=== PATIENT | male | born 1965 | race Caucasian/White ===

== ENCOUNTER → 2017-09-22 | Outpatient (CLI) | payer BC ==
--- NOTE | 2017-09-22 12:49 | ECHOS ---
STRESS ECHOCARDIOGRAM DATE OF SERVICE: 09/22/2017 INDICATIONS: Chest pain. BASELINE HEART RATE: 76 BASELINE BLOOD PRESSURE: 91/51 MAXIMUM HEART RATE: 130 MAXIMUM BLOOD PRESSURE: 167/92 85% MPHR: 142 100% MPHR: 167 METS: 4.8 MAXIMUM STAGE REACHED: 2 TOTAL EXERCISE TIME: 3:15 CLINICAL INFORMATION: Baseline EKG revealed normal sinus rhythm without significant ST-T changes. Patient walked on a standard Kareem protocol for 3 minutes 15 seconds, developed fatigue and shortness of breath. He achieved a maximal heart rate of 130 beats per minute. The patient also had some underlying COPD. Stress test was therefore stopped because of shortness of breath. EKG, at a heart rate of 130 beats per minute did not reveal any changes to suggest ischemia. This is therefore and inconclusive stress test with limited exercise capacity. Inadequate chronotropic response was seen. Baseline echo images revealed normal wall motion and wall thickening of all segments. At peak exercise and it was suboptimal heart rate of 130 beats per minute. There is no evidence to suggest ischemia on this stress echocardiogram. However, this is an inconclusive study given the fact patient did not achieve 85% of predicted maximal heart rate. FINAL IMPRESSION: Limited exercise capacity.correction with an inconclusive stress echocardiogram. However, at the at the above-mentioned heart rate of 130 beats per minute, there is no evidence suggest ischemia. MMODL / IJN: [id number] /
== END | disposition home or self-care (01) ==
LOC: RADNMMAIN 08:55
PROVIDERS: ATTEND Family Medicine
DX: R07.9 Chest pain, unspecified (principal); R06.02 Shortness of breath
CPT/HCPCS: 93350; 93017; Q9950

== ENCOUNTER → 2019-02-27 | Outpatient (CLI) | payer BC ==
--- NOTE | 2019-02-28 00:37 | MR ---
EXAMINATION TYPE: MR lumbar spine wo/w con DATE OF EXAM: 02/27/2019 COMPARISON: None HISTORY: LBP, LLE radic x 3 mos, abnormal EMG TECHNIQUE: Multiplanar, multisequence images of the lumbar spine were acquired utilizing [address] gadolinium contrast. Lumbar vertebra have normal alignment. There is mild decreased signal in the disks from L2 to S1 with out significant loss of height. There is anterior and posterior disc herniation at L4-5. There is dev elopmentally adequate canal and no significant spinal stenosis. There is no lumbar paraspinal mass. T here is no compression fracture. There is slight narrowing of the neural foramina bilaterally at L4-5 and L3-4 due to disc space narrowing. Visualized sacroiliac joints appear intact. Lumbar nerve roots appear normal. There are small cortical cysts in the left kidney. The contrast images show no pathologic enhancement. IMPRESSION: Small anterior and posterior disc herniations at L4-5. No spinal stenosis.
== END | disposition home or self-care (01) ==
LOC: RADMRIMAIN 18:24
PROVIDERS: ATTEND Family Medicine
DX: M51.16 Intervertebral disc disorders with radiculopathy, lumbar region (principal); R94.131 Abnormal electromyogram [EMG]
CPT/HCPCS: 72158; A9585

== ENCOUNTER 2019-06-09 22:12 | Inpatient (IN) | payer BC ==
[2019-06-09] MEDS ORDERED: MAGNESIUM SULFATE-D5W PMX 1 GM in DEXTROSE/WATER 1 100ML.BAG IVPB STA (22:19)
[2019-06-09] MEDS ORDERED: IPRATROPIUM-ALBUTEROL 3 ML NEB INHALATION STA (22:19)
--- NOTE | 2019-06-09 22:19 | ED ---
SOB HPI - General Chief Complaint: Shortness of Breath Stated Complaint: Shortness of Breath Time Seen by Provider: 06/09/19 22:15 - History of Present Illness Initial Comments: The patient is a 54-year-old male past history of COPD who presents emergency room with reported shortness of breath. He is not on home oxygen. States that his symptoms started on Monday. He was having worsening shortness of breath and was using his DuoNeb sent home. States that it hasn't been helping his symptoms. He does admit to a productive cough with yellow sputum production. Denies hemoptysis. He has never been intubated for his breathing. He sees Dr. Palacio in office. 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 States that he has not been on steroids in a very long time. This is the first time he had to call EMS to be brought into the hospital. When EMS arrived the patient was notably tachypneic and diaphoretic. He was satting 90% on room air. They did put him on CPAP. IV was established is given 125 mg of Solu-Medrol. He was also provided with a DuoNeb breathing treatment followed by an albuterol treatment. The patient had audible wheezes. He admits to chest wall pain from coughing. Denies ripping or tearing sensation to his back. Denies a history of congestive heart failure or coronary artery disease. No history of DVT or PE. Denies sudden onset of the shortness of breath. No lower extremity edema. Denies any calf pain or swelling. There are no other alleviating, precipitating or modifying factors - Related Data Home Medications Medication Instructions Recorded Confirmed Albuterol Sulfate [Ventolin HFA] 1 - 2 puff INHALATION RT-BID PRN 06/10/19 06/10/19 Budesonide-Formot 160-4.5 Mcg 2 puff INHALATION RT-BID 06/10/19 06/10/19 [Symbicort 160-4.5 Mcg Inhaler] Ergocalciferol (Vitamin D2) 50,000 unit PO Q30D 06/10/19 06/10/19 [Drisdol] Ipratropium-Albuterol Nebulize 3 ml INHALATION RT-QID PRN 06/10/19 06/10/19 [Duoneb 0.5 mg-3 mg/3 ml Soln] Levothyroxine Sodium [Synthroid] 150 mcg PO DAILY 06/10/19 06/10/19 Pravastatin Sodium [Pravachol] 80 mg PO DAILY 06/10/19 06/10/19 rOPINIRole HCL [Requip] 4 mg PO HS 06/10/19 06/10/19 Allergies Allergy/AdvReac Type Severity Reaction Status Date / Time No Known Allergies Allergy Verified 06/10/19 08:07 Review of Systems ROS Statement: Those systems with pertinent positive or pertinent negative responses have been documented in the HPI. ROS Other: All systems not noted in ROS Statement are negative. Past Medical History - Past Family History Mother Family Medical History: Cancer, COPD Father Family Medical History: Myocardial Infarction (VT) General Exam General appearance: alert, in distress Head exam: Present: atraumatic, normocephalic, normal inspection Eye exam: Present: normal appearance, PERRL, EOMI. Absent: scleral icterus, conjunctival injection, periorbital swelling ENT exam: Present: normal exam, mucous membranes moist Neck exam: Present: normal inspection. Absent: tenderness, meningismus, lymphadenopathy Respiratory exam: Present: respiratory distress, wheezes, accessory muscle use, decreased breath sounds, other (tachypnia). Absent: rales, rhonchi, stridor Cardiovascular Exam: Present: regular rate, normal rhythm, normal heart sounds. Absent: systolic murmur, diastolic murmur, rubs, gallop, clicks GI/Abdominal exam: Present: soft, normal bowel sounds. Absent: distended, tenderness, guarding, rebound, rigid Extremities exam: Present: normal inspection, full ROM, normal capillary refill. Absent: tenderness, pedal edema, joint swelling, calf tenderness Back exam: Present: normal inspection Neurological exam: Present: alert, oriented X3, CN II-XII intact Psychiatric exam: Present: normal affect, normal mood Skin exam: Present: warm, intact, normal color, diaphoretic. Absent: rash Course Vital Signs 06/09/19 06/09/19 06/09/19 22:13 22:26 22:58 Temperature 97.6 F Pulse Rate 113 H 111 H 104 H Respiratory 32 H 26 H 18 Rate Blood Pressure 143/103 116/103 131/93 O2 Sat by Pulse 98 97 97 Oximetry 06/09/19 06/09/19 06/09/19 23:07 23:18 23:20 Temperature Pulse Rate 113 H 116 H 112 H Respiratory 16 Rate Blood Pressure 119/99 O2 Sat by Pulse 98 Oximetry 06/09/19 06/09/19 06/09/19 23:30 23:40 23:50 Temperature Pulse Rate 111 H 113 H 113 H Respiratory 19 21 25 H Rate Blood Pressure 119/99 120/95 120/95 O2 Sat by Pulse 97 97 96 Oximetry 06/10/19 06/10/19 00:00 01:21 Temperature Pulse Rate Respiratory Rate Blood Pressure 120/95 126/82 O2 Sat by Pulse 98 Oximetry Medical Decision Making - Medical Decision Making upon arrival the patient was placed into room 5. A thorough history and physical exam was performed. The patient was transitioned from CPAP to BiPAP. He is notably tachycardic. 12-lead EKG is performed. X-ray studies were conducted and a portable chest x-rays performed. I did provide the patient with 1 g of magnesium and an additional DuoNeb breathing treatment. Lab studies show a normal white blood cell count of 7.3. Platelets are 140. D-dimer 0.52 which is appropriate for the patient's age. PCO2 is 45 with a bicarb of 24. Influenza A and B are negative. Chest x-ray demonstrates no active cardio pulmonary disease. - Lab Data Result diagrams: 06/09/19 22:21 06/09/19 22:21 Lab Results 06/09/19 06/09/19 06/09/19 Range/Units 22:21 22:21 22:21 WBC 7.3 (3.8-10.6) k/uL RBC 5.92 H (4.30-5.90) m/uL Hgb 17.5 (13.0-17.5) gm/dL Hct 54.4 H (39.0-53.0) % MCV 91.8 (80.0-100.0) fL MCH 29.5 (25.0-35.0) pg MCHC 32.1 (31.0-37.0) g/dL RDW 12.7 (11.5-15.5) % Plt Count 140 L (150-450) k/uL Neutrophils % (Manual) 44 % Band Neutrophils % 3 % Lymphocytes % (Manual) 38 % Monocytes % (Manual) 15 % Neutrophils # (Manual) 3.40 (1.3-7.7) k/uL Lymphocytes # (Manual) 2.77 (1.0-4.8) k/uL Monocytes # (Manual) 1.10 H (0-1.0) k/uL Nucleated RBCs 0 (0-0) /100 WBC Manual Slide Review Performed PT (9.0-12.0) sec INR (<1.2) APTT (22.0-30.0) sec D-Dimer (<0.60) mg/L FEU VBG pH (7.31-7.41) VBG pCO2 (37-51) mmHg VBG HCO3 (24-28) mmol/L Sodium 138 (137-145) mmol/L Potassium 4.6 (3.5-5.1) mmol/L Chloride 103 (98-107) mmol/L Carbon Dioxide 26 (22-30) mmol/L Anion Gap 9 mmol/L BUN 14 (9-20) mg/dL Creatinine 0.97 (0.66-1.25) mg/dL Est GFR (CKD-EPI)AfAm >90 (>60 ml/min/1.73 sqM) Est GFR (CKD-EPI)NonAf 88 (>60 ml/min/1.73 sqM) Glucose 111 H (74-99) mg/dL Plasma Lactic Acid Reyes (0.7-2.0) mmol/L Calcium 9.3 (8.4-10.2) mg/dL Magnesium 2.2 (1.6-2.3) mg/dL Total Bilirubin 0.7 (0.2-1.3) mg/dL AST 50 (17-59) U/L ALT 32 (4-49) U/L Alkaline Phosphatase 89 (38-126) U/L Troponin I (0.000-0.034) ng/mL NT-Pro-B Natriuret Pep 88 pg/mL Total Protein 7.9 (6.3-8.2) g/dL Albumin 4.7 (3.5-5.0) g/dL Influenza Type A RNA (Not Detectd) Influenza Type B (PCR) (Not Detectd) 06/09/19 06/09/19 06/09/19 Range/Units 22:21 22:21 22:21 WBC (3.8-10.6) k/uL RBC (4.30-5.90) m/uL Hgb (13.0-17.5) gm/dL Hct (39.0-53.0) % MCV (80.0-100.0) fL MCH (25.0-35.0) pg MCHC (31.0-37.0) g/dL RDW (11.5-15.5) % Plt Count (150-450) k/uL Neutrophils % (Manual) % Band Neutrophils % % Lymphocytes % (Manual) % Monocytes % (Manual) % Neutrophils # (Manual) (1.3-7.7) k/uL Lymphocytes # (Manual) (1.0-4.8) k/uL Monocytes # (Manual) (0-1.0) k/uL Nucleated RBCs (0-0) /100 WBC Manual Slide Review PT 9.4 (9.0-12.0) sec INR 0.9 (<1.2) APTT 28.6 (22.0-30.0) sec D-Dimer (<0.60) mg/L FEU VBG pH (7.31-7.41) VBG pCO2 (37-51) mmHg VBG HCO3 (24-28) mmol/L Sodium (137-145) mmol/L Potassium (3.5-5.1) mmol/L Chloride (98-107) mmol/L Carbon Dioxide (22-30) mmol/L Anion Gap mmol/L BUN (9-20) mg/dL Creatinine (0.66-1.25) mg/dL Est GFR (CKD-EPI)AfAm (>60 ml/min/1.73 sqM) Est GFR (CKD-EPI)NonAf (>60 ml/min/1.73 sqM) Glucose (74-99) mg/dL Plasma Lactic Acid Reyes 0.9 (0.7-2.0) mmol/L Calcium (8.4-10.2) mg/dL Magnesium (1.6-2.3) mg/dL Total Bilirubin (0.2-1.3) mg/dL AST (17-59) U/L ALT (4-49) U/L Alkaline Phosphatase (38-126) U/L Troponin I <0.012 (0.000-0.034) ng/mL NT-Pro-B Natriuret Pep pg/mL Total Protein (6.3-8.2) g/dL Albumin (3.5-5.0) g/dL Influenza Type A RNA (Not Detectd) Influenza Type B (PCR) (Not Detectd) 06/09/19 06/09/19 06/09/19 Range/Units 22:21 22:21 22:21 WBC (3.8-10.6) k/uL RBC (4.30-5.90) m/uL Hgb (13.0-17.5) gm/dL Hct (39.0-53.0) % MCV (80.0-100.0) fL MCH (25.0-35.0) pg MCHC (31.0-37.0) g/dL RDW (11.5-15.5) % Plt Count (150-450) k/uL Neutrophils % (Manual) % Band Neutrophils % % Lymphocytes % (Manual) % Monocytes % (Manual) % Neutrophils # (Manual) (1.3-7.7) k/uL Lymphocytes # (Manual) (1.0-4.8) k/uL Monocytes # (Manual) (0-1.0) k/uL Nucleated RBCs (0-0) /100 WBC Manual Slide Review PT (9.0-12.0) sec INR (<1.2) APTT (22.0-30.0) sec D-Dimer 0.52 (<0.60) mg/L FEU VBG pH 7.35 (7.31-7.41) VBG pCO2 45 (37-51) mmHg VBG HCO3 24 (24-28) mmol/L Sodium (137-145) mmol/L Potassium (3.5-5.1) mmol/L Chloride (98-107) mmol/L Carbon Dioxide (22-30) mmol/L Anion Gap mmol/L BUN (9-20) mg/dL Creatinine (0.66-1.25) mg/dL Est GFR (CKD-EPI)AfAm (>60 ml/min/1.73 sqM) Est GFR (CKD-EPI)NonAf (>60 ml/min/1.73 sqM) Glucose (74-99) mg/dL Plasma Lactic Acid Reyes (0.7-2.0) mmol/L Calcium (8.4-10.2) mg/dL Magnesium (1.6-2.3) mg/dL Total Bilirubin (0.2-1.3) mg/dL AST (17-59) U/L ALT (4-49) U/L Alkaline Phosphatase (38-126) U/L Troponin I (0.000-0.034) ng/mL NT-Pro-B Natriuret Pep pg/mL Total Protein (6.3-8.2) g/dL Albumin (3.5-5.0) g/dL Influenza Type A RNA Not Detected (Not Detectd) Influenza Type B (PCR) Not Detected (Not Detectd) - EKG Data EKG Comments: EKG demonstrates a sinus tachycardia with a ventricular rate of 117. MS interval 132. QRS 80. QTC of 446. No acute ST segment elevations or depressions concerning for ischemic changes. There is significant baseline artifact. Inverted T-wave in aVL. Critical Care Time Critical Care Time: Yes Critical Care Time: 35 minutes for management of bipap settings Disposition Clinical Impression: COPD with acute exacerbation Disposition: ADMITTED IP TO THIS HOSP Condition: Serious Is patient prescribed a controlled substance at d/c from ED?: No Decision to Admit Reason: Admit from EC Decision Date: 06/10/19 Decision Time: 00:26
[2019-06-09] MEDS ORDERED: KETOROLAC 30 MG/ML 1 ML VIAL IVP STA (22:24)
--- NOTE | 2019-06-09 22:37 | XR ---
EXAMINATION TYPE: XR chest 1V portable DATE OF EXAM: 06/09/2019 COMPARISON: NONE HISTORY: Short of breath TECHNIQUE: Single view FINDINGS: Heart is normal. Lungs are clear of consolidation. There is no pleural effusion. There are no hilar masses. There are chest leads. IMPRESSION: No active cardiopulmonary disease. Normal heart.
[2019-06-09 22:41] LABS: VBG PH 7.35 (7.31-7.41)
[2019-06-09 22:45] LABS: HCT 54.4 % (39.0-53.0); HGB 17.5 gm/dL (13.0-17.5); MCH 29.5 pg (25.0-35.0); MCHC 32.1 g/dL (31.0-37.0); MCV 91.8 fL (80.0-100.0); Mean Platelet Volume 8.6; Platelet Count 140 k/uL (150-450); RBC 5.92 m/uL (4.30-5.90); RDW 12.7 % (11.5-15.5); WBC 7.3 k/uL (3.8-10.6)
[2019-06-09 22:49] LABS: INR 0.9 (<1.2); Partial Thromboplastin Time 28.6 sec (22.0-30.0); Prothrombin Time 9.4 sec (9.0-12.0)
[2019-06-09 22:54] LABS: ALT 32 U/L (4-49); AST 50 U/L (17-59); African American GFR (CKD) >90 (>60 ml/min/1.73 sqM); Albumin 4.7 g/dL (3.5-5.0); Alkaline Phosphatase 89 U/L (38-126); Anion Gap 9 mmol/L; Blood Urea Nitrogen 14 mg/dL (9-20); Calcium 9.3 mg/dL (8.4-10.2); Carbon Dioxide 26 mmol/L (22-30); Chloride 103 mmol/L (98-107); Glucose 111 mg/dL (74-99); Magnesium 2.2 mg/dL (1.6-2.3); Non-African American GFR(CKD) 88 (>60 ml/min/1.73 sqM); Potassium 4.6 mmol/L (3.5-5.1); Sodium 138 mmol/L (137-145); Total Bilirubin 0.7 mg/dL (0.2-1.3); Total Protein 7.9 g/dL (6.3-8.2)
[2019-06-09 23:01] LABS: Band Neutrophils % 3 %; Lymphocytes # (M) 2.77 k/uL (1.0-4.8); Neutrophils % (M) 44 %; Nucleated Red Blood Cells 0 /100 WBC (0-0); Total Cells Counted 100
--- NOTE | 2019-06-10 00:40 | CT ---
EXAMINATION TYPE: CT chest angio for PE DATE OF EXAM: 06/10/2019 COMPARISON: None there are 3-D post processed images. HISTORY: SOB. CT DLP: 392.1 mGycm Automated exposure control for dose reduction was used. CONTRAST: Performed with IV Contrast, patient injected with 60 mL of Isovue 370. There is pulmonary emphysema. There is minimal pleural thickening in the anterior right middle lobe. There is no evidence of a pulmonary mass. There is no pleural effusion. Upper abdominal soft tissues are intact. Heart size is normal. There is no pericardial effusion. There is normal contrast opacification of the pulmonary arteries. There are no filling defects. There is no mediastinal adenopathy. There are no h ilar masses. Thoracic aorta shows no aneurysm or dissection. Thoracic spine is intact. Bony thorax is intact. IMPRESSION: Emphysema. No evidence of pulmonary embolism. Minimal pleural scarring right middle lobe.
[2019-06-10] MEDS ORDERED: NALOXONE 0.4 MG/ML 1 ML VIAL IV PRN (00:41)
[2019-06-10] MEDS ORDERED: AZITHROMYCIN 500 MG in SODIUM CHLORIDE 0.9% 250 ML IVPB ONE (01:00)
[2019-06-10] MEDS: methylPREDNISolone SOD SUCCI 40 MG/ML 1 ML VIAL IV SCH ×2 (01:18→07:52)
[2019-06-10] MEDS: IPRATROPIUM-ALBUTEROL 3 ML NEB INHALATION SCH ×5 (03:18→19:57)
[2019-06-10 10:25] LABS: Cholesterol 181 mg/dL (<200); HDL Cholesterol 58 mg/dL (40-60); LDL Cholesterol,Calculated 113 mg/dL (0-99); Triglycerides 51 mg/dL (<150)
[2019-06-10] MEDS: PRAVASTATIN SODIUM 80 MG TAB PO SCH (11:26)
[2019-06-10] MEDS: NAPROXEN 250 MG TAB PO PRN (11:50)
--- NOTE | 2019-06-10 13:22 | P.CRDCN ---
History of Present Illness History of present illness: HISTORY OF PRESENTING ILLNESS This is a pleasant 54-year-old male past medical history significant for COPD, dyslipidemia and former nicotine dependence. 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 He underwent at stress echo in 2018 that was inconclusive secondary to poor exercise tolerance. He has significant family history for premature coronary artery disease in his father and mother. We have been asked to see in consultation for shortness of breath. He states acutely on Monday he started coughing with productive phlegm production. Sputum was yellowish brown. He also had significant shortness of breath. On EMS arrival he was quite tachypneic and bipap was applied. He responded quite well. He is seen and examined sitting up in bed in no acute distress. He states his shortness of breath is ongoing however has improved significantly. He is still coughing and having some pleuritic pain on the left side when he coughs. He denies dizziness, palpitations, nausea or vomiting. He sleeps sitting up in his recliner for the last 6-months secondary to coughing when he lays flat. DIAGNOSTICS EKG reveals sinus tachycardia heart rate 117. No acute ST changes. Chest xray negative for an acute cardiopulmonary process. CTA chest negative for PE with minimal scarring in the right middle lobe. Laboratory reviewed, WBC 7.3, hgb 17.5, plt 140, d-dimer 0.52, VBG unremarkable, sodium 138, potassium 4.6, creatinine 0.97, cardiac enzymes negative x2, proBNP 88, LDL 113, HDL 58. Current cardiac medications include pravastatin 80 mg daily. REVIEW OF SYSTEMS At the time of my exam: CONSTITUTIONAL: Denies fever or chills. CARDIOVASCULAR: Complains of shortness of breath and pleuritic chest pain. Denies orthopnea, PND or palpitations. RESPIRATORY: Complains of cough. GASTROINTESTINAL: Denies abdominal pain, diarrhea, constipation, nausea or vo miting. MUSCULOSKELETAL: Denies myalgias. NEUROLOGIC: Denies numbness, tingling or weakness. ENDOCRINE: Denies fatigue, weight change, polydipsia or polyurina. GENITOURINARY: Denies burning, hematuria or urgency with micturation. HEMATOLOGIC: Denies history of anemia or bleeding. PHYSICAL EXAMINATION Blood pressure 122/7 heart rate 93 afebrile and maintaining oxygen saturation on nasal cannula. CONSTITUTIONAL: No apparent distress. HEENT: Head is normocephalic. Pupils are equal, round. Sclerae anicteric. Mucous membranes of the mouth are moist. No JVD. No carotid bruit. CHEST EXAMINATION: Expiratory wheeze and scattered rhonchi. No chest wall tenderness is noted on palpation or with deep breathing. HEART EXAMINATION: Regular rate and rhythm. S1, S2 heard. No murmurs, gallops or rub. ABDOMEN: Soft, nontender. Positive bowel sounds. EXTREMITIES: 2+ peripheral pulses, no lower extremity edema and no calf tenderness. NEUROLOGIC EXAMINATION: Patient is awake, alert and oriented x3. ASSESSMENT Chest pain, pleuritic. Atypical for angina. No EKG changes initially on admission. Shortness of breath, likely secondary to underlying COPD. Clinically euvolemic Thrombocytopenia Dyslipidemia Former nicotine dependence PLAN Continue to obtain serial enzymes to rule out an acute event. Obtain 2D echocardiogram and doppler study to assess cardiac structure and function. Recommend outpatient stress testing when this acute exacerbation of COPD has improved. Thank you kindly for this consultation. Nurse Practitioner note has been reviewed, I agree with a documented findings and plan of care. Patient was seen and examined. Past Medical History Past Medical History: COPD, Hyperlipidemia History of Any Multi-Drug Resistant Organisms: None Reported Past Surgical History: No Surgical Hx Reported Past Anesthesia/Blood Transfusion Reactions: No Reported Reaction Past Psychological History: No Psychological Hx Reported Smoking Status: Former smoker Past Alcohol Use History: Occasional Past Drug Use History: Marijuana - Past Family History Mother Family Medical History: Cancer, COPD Father Family Medical History: Myocardial Infarction (CT) Medications and Allergies Home Medications Medication Instructions Recorded Confirmed Type Albuterol Sulfate [Ventolin HFA] 1 - 2 puff INHALATION RT-BID PRN 06/10/19 06/10/19 History Budesonide-Formot 160-4.5 Mcg 2 puff INHALATION RT-BID 06/10/19 06/10/19 History [Symbicort 160-4.5 Mcg Inhaler] Ergocalciferol (Vitamin D2) 50,000 unit PO Q30D 06/10/19 06/10/19 History [Drisdol] Ipratropium-Albuterol Nebulize 3 ml INHALATION RT-QID PRN 06/10/19 06/10/19 History [Duoneb 0.5 mg-3 mg/3 ml Soln] Levothyroxine Sodium [Synthroid] 150 mcg PO DAILY 06/10/19 06/10/19 History Pravastatin Sodium [Pravachol] 80 mg PO DAILY 06/10/19 06/10/19 History rOPINIRole HCL [Requip] 4 mg PO HS 06/10/19 06/10/19 History Allergies Allergy/AdvReac Type Severity Reaction Status Date / Time No Known Allergies Allergy Verified 06/10/19 08:07 Physical Exam Vitals: Vital Signs Temp Pulse Pulse Resp BP BP Pulse Ox 06/10/19 07:34 96 06/10/19 07:26 94 95 06/10/19 07:17 18 95 06/10/19 06:23 96.8 F L 93 22 122/79 99 06/10/19 03:32 96 06/10/19 03:20 93 06/10/19 02:44 105 H 24 06/10/19 02:09 97.3 F L 105 H 24 129/85 98 06/10/19 01:21 126/82 98 06/10/19 00:00 120/95 06/09/19 23:50 113 H 25 H 120/95 96 06/09/19 23:40 113 H 21 120/95 97 06/09/19 23:30 111 H 19 119/99 97 06/09/19 23:20 112 H 16 119/99 98 06/09/19 23:18 116 H 06/09/19 23:07 113 H 06/09/19 22:58 104 H 18 131/93 97 06/09/19 22:26 111 H 26 H 116/103 97 06/09/19 22:13 97.6 F 113 H 32 H 143/103 98 Intake and Output 06/09/19 06/10/19 06/10/19 22:59 06:59 14:59 Other: Voiding Method Toilet Toilet # Voids 1 Weight 74.843 kg 74.843 kg Results 06/09/19 22:21 06/09/19 22:21 Cardiac Enzymes 06/09/19 06/09/19 06/10/19 Range/Units 22:21 22:21 05:55 AST 50 (17-59) U/L Troponin I <0.012 <0.012 (0.000-0.034) ng/mL Coagulation 06/09/19 Range/Units 22:21 PT 9.4 (9.0-12.0) sec APTT 28.6 (22.0-30.0) sec Lipids 06/10/19 Range/Units 05:55 Triglycerides 51 (<150) mg/dL Cholesterol 181 (<200) mg/dL HDL Cholesterol 58 (40-60) mg/dL CBC 06/09/19 Range/Units 22:21 WBC 7.3 (3.8-10.6) k/uL RBC 5.92 H (4.30-5.90) m/uL Hgb 17.5 (13.0-17.5) gm/dL Hct 54.4 H (39.0-53.0) % Plt Count 140 L (150-450) k/uL Comprehensive Metabolic Panel 06/09/19 Range/Units 22:21 Sodium 138 (137-145) mmol/L Potassium 4.6 (3.5-5.1) mmol/L Chloride 103 (98-107) mmol/L Carbon Dioxide 26 (22-30) mmol/L BUN 14 (9-20) mg/dL Creatinine 0.97 (0.66-1.25) mg/dL Glucose 111 H (74-99) mg/dL Calcium 9.3 (8.4-10.2) mg/dL AST 50 (17-59) U/L ALT 32 (4-49) U/L Alkaline Phosphatase 89 (38-126) U/L Total Protein 7.9 (6.3-8.2) g/dL Albumin 4.7 (3.5-5.0) g/dL Current Medications Generic Name Dose Route Start Last Admin Trade Name Freq PRN Reason Stop Dose Admin Albuterol/Ipratropium 3 ml 06/10/19 04:00 06/10/19 07:23 Duoneb 0.5 Mg-3 Mg/3 Ml Soln INHALATION 3 ml RT-Q4H DUNG Administration Levothyroxine Sodium 150 mcg 06/11/19 06:30 Synthroid PO 0630 [facility] Methylprednisolone Sodium Succinate 40 mg 06/10/19 00:30 06/10/19 07:52 Solu-Medrol IV 40 mg Q8HR DUNG Administration Naloxone HCl 0.2 mg 06/10/19 00:41 Narcan IV Q2M PRN Opioid Reversal Pravastatin Sodium 80 mg 12/16/19 10:15 Pravachol PO DAILY DUNG Ropinirole HCl 4 mg 06/10/19 21:00 Requip PO HS DUNG Intake and Output 06/09/19 06/10/19 06/10/19 22:59 06:59 14:59 Other: Voiding Method Toilet Toilet # Voids 1 Weight 74.843 kg 74.843 kg 06/09/19 22:21 06/09/19 22:21
--- NOTE | 2019-06-10 15:19 | P.CNPUL ---
History of Present Illness Consult date: 06/10/19 Reason for consult: dyspnea Chief complaint: shortness of breath History of present illness: 54-year-old patient with past medical history of COPD, not normally oxygen dependent who presented to the hospital on 06/09/2019 with complaints of increasing shortness of breath since Monday, had not improved despite his nebul ized treatments, he admitted to productive cough with yellow sputum, and sharp pain on the left side of his chest with deep breathing and coughing. Denied any hemoptysis, denied any fever or chills, denied any hemoptysis. chest x-ray completed in the emergency department showed no active cardiopulmonary disease,labs were negative for any leukocytosis, white blood cell count was 7.3, hemoglobin was 17.5, d-dimer was 0.52, the rest of the coagulation profile, electrolytes, renal profile were within normal limits. Patient is normally on Symbicort, DuoNeb, and albuterol. EKG showed sinus tachycardia, with right atrial enlargement, but no acute ischemic changes. other past medical history includes dyslipidemia, former nicotine dependence. patient with a BiPAP support with significant amount of respiratory distress on presentation, with pressures of 14/5, and FiO2 of 35%, IV steroids, IV steroids, and empiric antibiotics, feeling slightly better, and patient is off BiPAP support, and nasal cannula Review of Systems All systems: negative Constitutional: Denies chills, Denies fever Eyes: denies blurred vision, denies pain Ears, nose, mouth and throat: Denies headache, Denies sore throat Cardiovascular: Reports chest pain, Denies shortness of breath Respiratory: Reports dyspnea, Denies cough Gastrointestinal: Denies abdominal pain, Denies diarrhea, Denies nausea, Denies vomiting Musculoskeletal: Denies myalgias Integumentary: Denies pruritus, Denies rash Neurological: Denies numbness, Denies weakness Psychiatric: Denies anxiety, Denies depression Endocrine: Denies fatigue, Denies weight change Past Medical History Past Medical History: COPD, Hyperlipidemia History of Any Multi-Drug Resistant Organisms: None Reported Past Surgical History: No Surgical Hx Reported Past Anesthesia/Blood Transfusion Reactions: No Reported Reaction Past Psychological History: No Psychological Hx Reported Smoking Status: Former smoker Past Alcohol Use History: Occasional Past Drug Use History: Marijuana - Past Family History Mother Family Medical History: Cancer, COPD Father Family Medical History: Myocardial Infarction (OK) Medications and Allergies Home Medications Medication Instructions Recorded Confirmed Type Albuterol Sulfate [Ventolin HFA] 1 - 2 puff INHALATION RT-BID PRN 06/10/19 06/10/19 History Budesonide-Formot 160-4.5 Mcg 2 puff INHALATION RT-BID 06/10/19 06/10/19 History [Symbicort 160-4.5 Mcg Inhaler] Ergocalciferol (Vitamin D2) 50,000 unit PO Q30D 06/10/19 06/10/19 History [Drisdol] Ipratropium-Albuterol Nebulize 3 ml INHALATION RT-QID PRN 06/10/19 06/10/19 History [Duoneb 0.5 mg-3 mg/3 ml Soln] Levothyroxine Sodium [Synthroid] 150 mcg PO DAILY 06/10/19 06/10/19 History Pravastatin Sodium [Pravachol] 80 mg PO DAILY 06/10/19 06/10/19 History rOPINIRole HCL [Requip] 4 mg PO HS 06/10/19 06/10/19 History Allergies Allergy/AdvReac Type Severity Reaction Status Date / Time No Known Allergies Allergy Verified 06/10/19 08:07 Physical Exam Vitals: Vital Signs Temp Pulse Pulse Resp BP BP Pulse Ox 06/10/19 14:10 97.6 F 106 H 18 111/72 97 06/10/19 11:33 104 H 06/10/19 11:22 100 06/10/19 07:34 96 06/10/19 07:26 94 95 06/10/19 07:17 18 95 06/10/19 06:23 96.8 F L 93 22 122/79 99 06/10/19 03:32 96 06/10/19 03:20 93 06/10/19 02:44 105 H 24 06/10/19 02:09 97.3 F L 105 H 24 129/85 98 06/10/19 01:21 126/82 98 06/10/19 00:00 120/95 06/09/19 23:50 113 H 25 H 120/95 96 06/09/19 23:40 113 H 21 120/95 97 06/09/19 23:30 111 H 19 119/99 97 06/09/19 23:20 112 H 16 119/99 98 06/09/19 23:18 116 H 06/09/19 23:07 113 H 06/09/19 22:58 104 H 18 131/93 97 06/09/19 22:26 111 H 26 H 116/103 97 06/09/19 22:13 97.6 F 113 H 32 H 143/103 98 Intake and Output 06/10/19 06/10/19 06/10/19 06:59 14:59 22:59 Intake Total 940 Balance 940 Intake: Oral 940 Other: Voiding Method Toilet Toilet # Voids 1 2 Weight 74.843 kg GENERAL EXAM: Alert, very pleasant, 54-year-old white male, on 4 L of oxygen with pulse ox of 97%, comfortable in no apparent distress. HEAD: Normocephalic/atraumatic. EYES: Normal reaction of pupils, equal size. Conjunctiva pink, sclera white. NOSE: Clear with pink turbinates. THROAT: No erythema or exudates. NECK: No masses, no JVD, no thyroid enlargement, no adenopathy. CHEST: No chest wall deformity. Symmetrical expansion. LUNGS: Equal air entry with diffuse wheezes CVS: Regular rate and rhythm, normal S1 and S2, no gallops, no murmurs, no rubs ABDOMEN: Soft, nontender. No hepatosplenomegaly, normal bowel sounds, no guarding or rigidity. EXTREMITIES: No clubbing, no edema, no cyanosis, 2+ pulses and upper and lower extremities. MUSCULOSKELETAL: Muscle strength and tone normal. SPINE: No scoliosis or deformity SKIN: No rashes CENTRAL NERVOUS SYSTEM: Alert and oriented -3. No focal deficits, tone is normal in all 4 extremities. PSYCHIATRIC: Alert and oriented -3. Appropriate affect. Intact judgment and insight. Results - Laboratory Findings CBC and BMP: 06/09/19 22:21 06/09/19 22:21 PT/INR, D-dimer PT 9.4 sec (9.0-12.0) 06/09/19 22:21 INR 0.9 (<1.2) 06/09/19 22:21 D-Dimer 0.52 mg/L FEU (<0.60) 06/09/19 22:21 Abnormal lab findings: Abnormal Labs 06/09/19 06/09/19 06/10/19 22:21 22:21 05:55 RBC 5.92 H Hct 54.4 H Plt Count 140 L Monocytes # (Manual) 1.10 H Glucose 111 H LDL Cholesterol, Calc 113 H - Diagnostic Findings Chest x-ray: report reviewed, image reviewed CT scan - chest: report reviewed, image reviewed Additional studies: EKG reviewed Assessment and Plan Plan: assessment: #1. Acute hypoxic respiratory failure related to acute exacerbation of chronic obstructive pulmonary disease, with purulent tracheobronchitis #2. Sharp chest pain with coughing, and workup is negative thus far, CTA chest was positive for pulmonary embolism, showed emphysema minimal pleural scarring in the right middle lobe #3. former smoker #4. his lipidemia #5. history of family no premature coronary artery disease plan: We'll start Pulmicort, Perforomist, we will increase IV Solumedrol to 60 every 6, continue Zithromax, send a sputum for culture, continue nebulized bronchodilators, chest x-ray and CTA chest have been reviewed, showing no acute pulmonary process, patient can wear BiPAP support as needed, he is improving, st ill bronchospastic and dyspnea, I performed a history & physical examination of the patient and discussed their management with my nurse practitioner, Chelsey Baird. I reviewed the nurse practitioner's note and agree with the documented findings and plan of care. Lung sounds are positive for diffuse wheezes throughout the lung blackman. The findings and the impression was discussed with the patient. I attest to the documentation by the nurse practitioner. Time with Patient: Greater than 30
[2019-06-10] MEDS: AZITHROMYCIN 500 MG TAB PO SCH (15:35)
[2019-06-10] MEDS ORDERED: methylPREDNISolone SOD SUCCI 40 MG/ML 1 ML VIAL IV SCH (16:00)
[2019-06-10] MEDS: methylPREDNISolone SOD SUCCI 125 MG/2 ML VIAL IV SCH (17:09)
--- NOTE | 2019-06-10 19:08 | ECHOF ---
Referral Reason:sob MEASUREMENTS -------- HEIGHT: 180.3 cm WEIGHT: 74.8 kg BP: 122/79 RVIDd: 3.4 cm (< 3.3) IVSd: 1.2 cm (0.6 - 1.1) LVIDd: 3.7 cm (3.9 - 5.3) LVPWd: 1.2 cm (0.6 - 1.1) IVSs: 1.9 cm LVIDs: 2.8 cm LVPWs: 1.5 cm LA Diam: 3.5 cm (2.7 - 3.8) Ao Diam: 3.2 cm (2.0 - 3.7) AV Cusp: 1.5 cm (1.5 - 2.6) MV EXCURSION: 12.495 mm (> 18.000) MV EF SLOPE: 41 mm/s (70 - 150) EPSS: 1.0 cm MV E Tyree: 0.66 m/s MV DecT: 99 ms MV A Tyree: 0.72 m/s MV E/A Ratio: 0.91 RAP: 5.00 mmHg RVSP: 32.66 mmHg FINDINGS -------- Resting tachycardia (HR>100bpm). This was a technically adequate study. The left ventricular size is normal. There is borderline concentric left ventricular hypertrophy. Overall left ventricular systolic function is normal with, an EF between 60 - 65 %. The right ventricle is mildly enlarged. The left atrial size is normal. The right atrium is normal in size. Interatrial and interventricular septum intact. Aortic valve is trileaflet and is mildly thickened. The mitral valve is normal. Mild tricuspid regurgitation present. There is borderline pulmonary hypertension. The right ventr icular systolic pressure, as measured by Doppler, is 32.66mmHg. The pulmonic valve was not well visualized. The aortic root size is normal. Normal inferior vena cava with normal inspiratory collapse consistent with estimated right atrial pre ssure of 5 mmHg. The inferior vena cava is mildly dilated. There is no pericardial effusion. CONCLUSIONS -------- 1. Resting tachycardia (HR>100bpm). 2. This was a technically adequate study. 3. The left ventricular size is normal. 4. There is borderline concentric left ventricular hypertrophy. 5. Overall left ventricular systolic function is normal with, an EF between 60 - 65 %. 6. The right ventricle is mildly enlarged. 7. The left atrial size is normal. 8. The right atrium is normal in size. 9. Interatrial and interventricular septum intact. 10. Aortic valve is trileaflet and is mildly thickened. 11. The mitral valve is normal. 12. Mild tricuspid regurgitation present. 13. There is borderline pulmonary hypertension. 14. The right ventricular systolic pressure, as measured by Doppler, is 32.66mmHg. 15. The pulmonic valve was not well visualized. 16. The aortic root size is normal. 17. Normal inferior vena cava with normal inspiratory collapse consistent with estimated right atrial pressure of 5 mmHg. 18. The inferior vena cava is mildly dilated. 19. There is no pericardial effusion. [employer] DIST[employer]OR TENDER: Fiordaliza Gardner RDCS
[2019-06-10] MEDS: BUDESONIDE 1 MG/2 ML NEBU INHALATION SCH (19:57)
[2019-06-10] MEDS: FORMOTEROL FUMARATE 20 MCG/2 ML NEBU INHALATION SCH (19:57)
[2019-06-10] MEDS ORDERED: SYMBICORT 160-4.5 MCG INHALER INHALATION SCH (20:00)
[2019-06-10] MEDS: rOPINIRole HCL 4 MG TABLET PO SCH (20:25)
--- NOTE | 2019-06-10 20:59 | HP ---
HISTORY AND PHYSICAL CHIEF COMPLAINT: Difficulty breathing. HISTORY OF PRESENT ILLNESS: This is another admission for this 54-year-old white male with COPD. In the last several days, he has gotten persistently more short of breath and came into the emergency room in acute respiratory failure and was placed on BiPAP. States he stopped smoking 6 weeks ago. REVIEW OF SYSTEMS: He has had no chest pain, hemoptysis, neurologic problems, orthopnea, PND, PND, abdominal pain, nausea, vomiting and diarrhea, melena, hematochezia, jaundice, renal failure, hematuria dysuria frequency and nocturia, diabetes, etc. Past medical history, family history personal and social histories reveal he is ALLERGIC to LIPITOR. He states he has been on all of his medications, but he has not been in the office since January. He was on levothyroxine 0.15, Ropinirole 4 mg at night, vitamin D, updrafts with DuoNeb, Symbicort 160 2 puffs twice a day, Ventolin MDI. The remainder of his history is unremarkable. He was smoking this summer but states he stopped 6 weeks ago. He drinks occasionally. PHYSICAL EXAMINATION: Blood pressure is 120/78 with a pulse of 115 and respirations of 46, and he is afebrile. In general, he appeared to be acutely dyspneic. He was very asthenic. Skin was dry. Head, ears, eyes, nose, mouth, and throat were normal and the chest demonstrated increased AP diameter with very poor breath sounds bilaterally. There is wheezing on expiration and scattered rales and rhonchi throughout. Cardiac exam demonstrated sinus tachycardia. The abdomen is flat, soft, nontender. Extremities: Normal. Neurologically he is intact. IMPRESSION: 1. Acute respiratory failure. 2. Exacerbation of chronic obstructive pulmonary disease. PLAN: 1. Bed rest. 2. IV fluids. 3. BiPAP. 4. IV and inhaled steroids. 5. Pulmonology consult. MMODL / IJN: [id number] /
[2019-06-11] MEDS: methylPREDNISolone SOD SUCCI 125 MG/2 ML VIAL IV SCH ×2 (00:06→06:00)
[2019-06-11] MEDS: IPRATROPIUM-ALBUTEROL 3 ML NEB INHALATION SCH ×7 (00:18→23:31)
[2019-06-11] MEDS: LEVOTHYROXINE 75 MCG TAB PO SCH (06:00)
[2019-06-11] MEDS: FORMOTEROL FUMARATE 20 MCG/2 ML NEBU INHALATION SCH ×2 (07:33→19:26)
[2019-06-11] MEDS: BUDESONIDE 1 MG/2 ML NEBU INHALATION SCH (07:33)
[2019-06-11] MEDS: PRAVASTATIN SODIUM 80 MG TAB PO SCH (08:34)
[2019-06-11] MEDS: AZITHROMYCIN 500 MG TAB PO SCH (08:34)
[2019-06-11] MEDS: NAPROXEN 250 MG TAB PO PRN (08:39)
--- NOTE | 2019-06-11 09:49 | P.PN ---
Subjective Progress Note Date: 06/11/19 4-year-old male patient with established diagnosis of COPD presented yesterday with increased shortness of breath. Overnight he is a BiPAP briefly and currently is back on oxygen at 4 L per minute nasal cannula. CAT scan was reviewed and is consistent with COPD. Echo of the heart showed a preserved LV function. No valvular disease. No pulmonary hypertension. No swelling lower extremities. He is gradually improving. He is on bronchodilators and systemic steroids. Objective - Vital Signs Vital signs: Vital Signs Temp 97.3 F L 06/11/19 05:46 Pulse 108 H 06/11/19 07:45 Resp 16 06/11/19 05:46 BP 122/61 06/11/19 05:46 Pulse Ox 93 L 06/11/19 05:46 Intake & Output 06/10/19 06/11/19 06/11/19 18:59 06:59 18:59 Intake Total 940 100 Balance 940 100 Intake: Oral 940 100 Other: Voiding Method Toilet Toilet # Voids 2 1 - Exam The patient appeared well nourished and normally developed. Vital signs as documented. Head exam is unremarkable. No scleral icterus or corneal arcus noted. Neck is without jugular venous distension, thyromegaly, or carotid bruits. Carotid upstrokes are brisk bilaterally. Lungs diminished breath sounds bilaterally along with scattered expiratory wheezes heard throughout the lung blackman and prolongation of the expiratory phase of breathing. Cardiac exam reveals the PMI to be normally sized and situated. Rhythm is regular. First and second heart sounds normal. No murmurs, rubs or gallops. Abdominal exam reveals normal bowel sounds, no masses, no organomegaly and no aortic enlargement. Extremities are nonedematous and both femoral and pedal pulses are normal.skinExamination of the skin revealed no evidence of significant rashes, suspicious appearing nevi or other concerning lesions. - Labs CBC & Chem 7: 06/09/19 22:21 06/09/19 22:21 Labs: Abnormal Lab Results - Last 24 Hours (Table) 06/10/19 Range/Units 05:55 LDL Cholesterol, Calc 113 H (0-99) mg/dL Assessment and Plan Plan: #1 Acute hypoxic respiratory failure related to acute exacerbation of chronic obstructive pulmonary disease, with purulent tracheobronchitis #2 Sharp chest pain with coughing, and workup is negative thus far, CTA chest was negative for pulmonary embolism, showed emphysema minimal pleural scarring in the right middle lobe #3 former smoker #4.Hyperlipidemia #5. history of family no premature coronary artery disease plan Discontinue Pulmicort Respules due to side effects. Continue Perforomist. Continue the DuoNeb nebulized treatments in conjunction with Atrovent around the clock. IV Solu-Medrol. Antibiotics. CAT scan was reviewed. All his cessation counseling was done. We'll continue to follow.
--- NOTE | 2019-06-11 09:49 | P.PN ---
Subjective HISTORY OF PRESENTING ILLNESS This is a pleasant 54-year-old male past medical history significant for COPD, dyslipidemia and former nicotine dependence. He does not follow in the office with a needle leader for any reason. He underwent at stress echo in 2018 that was inconclusive secondary to poor exercise tolerance. He has significant family history for premature coronary artery disease in his father and mother. He is seen and examined sitting up in bed having just gotten back from walking to the bathroom. He is quite short of breath and tachyneic. He states last evening he had to go back on bipap due to worsening shortness of breath. He is still coughing with some pain in the chest when he coughs. Blood pressure 122/61 heart rate 108 afebrile and maintaining oxygen saturation on nasal cannula. Echocardiogram obtained revealed normal LV systolic function with EF 60-65%, mildly thickened , mild TR and mild pulmonary hypertension with RVSP 32 mmHg. Cardiac enzymes negative x3. PHYSICAL EXAMINATION CONSTITUTIONAL: Mild tachypnea and shortness of breath. HEENT: Head is normocephalic. Pupils are equal, round. Sclerae anicteric. Mucous membranes of the mouth are moist. No JVD. No carotid bruit. CHEST EXAMINATION: Expiratory wheeze, no rales or rhonchi. No chest wall tenderness is noted on palpation or with deep breathing. HEART EXAMINATION: Regular rate and rhythm. S1, S2 heard. No murmurs, gallops or rub. EXTREMITIES: 2+ peripheral pulses, no lower extremity edema and no calf tenderness. ASSESSMENT Chest pain, pleuritic. Atypical for angina. No EKG changes initially on admission. Shortness of breath, likely secondary to underlying COPD. Clinically euvolemic Thrombocytopenia Dyslipidemia Former nicotine dependence PLAN Continue current medical regimen and treatment per pulmonary care team. Advised resuming bipap if he continues to be short of breath and tachypneic. Spoke directly with the patients nurse. Recommend outpatient stress testing when his COPD has improved. We will follow as needed. Please call with further questions or concerns. Nurse Practitioner note has been reviewed, I agree with a documented findings and plan of care. Patient was seen and examined. Objective - Vital Signs Vital signs: Vital Signs Temp 97.3 F L 06/11/19 05:46 Pulse 108 H 06/11/19 07:45 Resp 16 06/11/19 05:46 BP 122/61 06/11/19 05:46 Pulse Ox 93 L 12/17/19 05:46 Intake & Output 06/10/19 06/11/19 06/11/19 18:59 06:59 18:59 Intake Total 940 100 Balance 940 100 Intake: Oral 940 100 Other: Voiding Method Toilet Toilet # Voids 2 1 - Labs CBC & Chem 7: 06/09/19 22:21 06/09/19 22:21 Labs: Abnormal Lab Results - Last 24 Hours (Table) 06/10/19 Range/Units 05:55 LDL Cholesterol, Calc 113 H (0-99) mg/dL
[2019-06-11] MEDS: predniSONE 20 MG TAB PO SCH ×3 (13:09→21:00)
--- NOTE | 2019-06-11 14:17 | XR ---
EXAMINATION TYPE: XR chest 2V DATE OF EXAM: 06/11/2019 COMPARISON: Prior chest x-ray 06/09/2019 HISTORY: COPD TECHNIQUE: Frontal and lateral views of the chest are obtained. FINDINGS: There is hyperinflation with relative flattening the hemidiaphragms. There are overlying c ardiac leads present. Eventration of right hemidiaphragm is present. There is no focal air space opac ity, pleural effusion, or pneumothorax seen. The cardiac silhouette size is within normal limits. The osseous structures are intact. IMPRESSION: No acute cardiopulmonary process.
--- NOTE | 2019-06-11 18:22 | PN ---
PROGRESS NOTE CHIEF COMPLAINT: Exacerbation of chronic obstructive pulmonary disease. HISTORY OF PRESENT ILLNESS: This gentleman is not any better. He is still extremely tight. He is barely maintaining a pulse ox in the 90s. PHYSICAL EXAM: He is struggling to breathe. Cardiac exam demonstrated sinus tachycardia and the chest demonstrates extremely poor breath sounds with expiratory wheezing and scattered rales and rhonchi. Abdomen is soft, nontender. IMPRESSION: Exacerbation of chronic obstructive pulmonary disease. PLAN: Change the steroids over to p.o. prednisone and he will be kept on high dose for 3 days. MMODL / IJN: [id number] /
[2019-06-11] MEDS: rOPINIRole HCL 4 MG TABLET PO SCH (21:00)
[2019-06-12] MEDS: IPRATROPIUM-ALBUTEROL 3 ML NEB INHALATION SCH ×5 (03:13→19:31)
[2019-06-12] MEDS: LEVOTHYROXINE 75 MCG TAB PO SCH (06:03)
[2019-06-12] MEDS: FORMOTEROL FUMARATE 20 MCG/2 ML NEBU INHALATION SCH ×3 (07:13→19:36)
[2019-06-12] MEDS: AZITHROMYCIN 500 MG TAB PO SCH (08:16)
[2019-06-12] MEDS: PRAVASTATIN SODIUM 80 MG TAB PO SCH (08:16)
[2019-06-12] MEDS: predniSONE 20 MG TAB PO SCH ×4 (08:16→20:48)
--- NOTE | 2019-06-12 10:30 | P.PN ---
Subjective Progress Note Date: 06/12/19 On today's evaluation of 06/12/2019, the patient is short of breath. He is slowly improving. Pulse ox on room air at rest is ranging between 90-91%. However he is still tachycardic in sinus tachycardia and he gets short of breath with limited amount of activity. I is going to ultimately qualify for home O2. He has made a commitment not to smoke. No chest pain. No swelling in lower extremities. No other complaints. I think he may need another 24-48 hours of treatment of IV Solu-Medrol here in the hospital. Objective - Vital Signs Vital signs: Vital Signs Temp 97.4 F L 06/12/19 05:00 Pulse 108 H 06/12/19 07:30 Resp 20 06/12/19 05:00 BP 145/88 06/12/19 05:00 Pulse Ox 90 L 06/12/19 05:00 Intake & Output 06/11/19 06/12/19 06/12/19 18:59 06:59 18:59 Intake Total 540 825 Balance 540 825 Intake: Oral 540 825 Other: Voiding Method Toilet # Voids 2 1 - Exam The patient appeared well nourished and normally developed. Vital signs as documented. Head exam is unremarkable. No scleral icterus or corneal arcus noted. Neck is without jugular venous distension, thyromegaly, or carotid bruits. Carotid upstrokes are brisk bilaterally. Lungs diminished breath sounds bilaterally along with scattered expiratory wheezes heard throughout the lung blackman and prolongation of the expiratory phase of breathing. Cardiac exam reveals the PMI to be normally sized and situated. Rhythm is regular. First and second heart sounds normal. No murmurs, rubs or gallops. Abdominal exam reveals normal bowel sounds, no masses, no organomegaly and no aortic enlargement. Extremities are nonedematous and both femoral and pedal pulses are normal.skinExamination of the skin revealed no evidence of significant rashes, suspicious appearing nevi or other concerning lesions. - Labs CBC & Chem 7: 06/09/19 22:21 06/09/19 22:21 Labs: Microbiology - Last 24 Hours (Table) 06/11/19 04:00 Gram Stain - Preliminary Sputum Assessment and Plan Plan: #1 Acute hypoxic respiratory failure related to acute exacerbation of chronic obstructive pulmonary disease, with purulent tracheobronchitis #2 Sharp chest pain with coughing, and workup is negative thus far, CTA chest was negative for pulmonary embolism, showed emphysema minimal pleural scarring in the right middle lobe #3 former smoker #4.Hyperlipidemia #5. history of family no premature coronary artery disease plan New same treatment. Evaluate for home O2. He has a nebulizer at home. He has Symbicort at home. Prednisone burst at that time of discharge. This will pr obably take place within next 24-48 hours. We'll follow.
--- NOTE | 2019-06-12 20:05 | PN ---
PROGRESS NOTE CHIEF COMPLAINT: Exacerbation of COPD. HISTORY OF PRESENT ILLNESS: This gentleman is slowly improving. He is a little bit less short of breath than he was yesterday. He has had no pain. He has had no fever or chills. PHYSICAL EXAMINATION: Breath sounds are still diminished and he has rales and rhonchi anteriorly and posteriorly. Cardiac exam is normal. IMPRESSION: Exacerbation of chronic obstructive pulmonary disease. PLAN: Continue with current program. He is slowly improving. Reassess tomorrow. MMODL / IJN: [id number] /
[2019-06-12] MEDS: rOPINIRole HCL 4 MG TABLET PO SCH (20:48)
[2019-06-13] MEDS: IPRATROPIUM-ALBUTEROL 3 ML NEB INHALATION SCH ×7 (01:08→20:16)
[2019-06-13] MEDS: LEVOTHYROXINE 75 MCG TAB PO SCH (05:58)
[2019-06-13] MEDS: FORMOTEROL FUMARATE 20 MCG/2 ML NEBU INHALATION SCH ×2 (07:39→20:17)
[2019-06-13] MEDS: AZITHROMYCIN 500 MG TAB PO SCH (07:50)
[2019-06-13] MEDS: PRAVASTATIN SODIUM 80 MG TAB PO SCH (07:50)
[2019-06-13] MEDS: predniSONE 20 MG TAB PO SCH (07:50)
--- NOTE | 2019-06-13 13:46 | P.PN ---
Subjective Progress Note Date: 06/13/19 Principal diagnosis: Acute COPD exacerbation 54-year-old patient with past medical history of COPD, not normally oxygen dependent who presented to the hospital on 06/09/2019 with complaints of increasing shortness of breath since Monday, had not improved despite his nebulized treatments, he admitted to productive cough with yellow sputum, and sharp pain on the left side of his chest with deep breathing and coughing. Denied any hemoptysis, denied any fever or chills, denied any hemoptysis. chest x-ray completed in the emergency department showed no active cardiopulmonary d isease,labs were negative for any leukocytosis, white blood cell count was 7.3, hemoglobin was 17.5, d-dimer was 0.52, the rest of the coagulation profile, electrolytes, renal profile were within normal limits. Patient is normally on Symbicort, DuoNeb, and albuterol. EKG showed sinus tachycardia, with right atrial enlargement, but no acute ischemic changes. other past medical history includes dyslipidemia, former nicotine dependence. patient with a BiPAP support with significant amount of respiratory distress on presentation, with pressures of 14/5, and FiO2 of 35%, IV steroids, IV steroids, and empiric antibiotics, feeling slightly better, and patient is off BiPAP support, and nasal cannula On 06/13/2019 patient seen in follow-up on medical surgical floor. He states his breathing is about the same as it was yesterday, still quite dyspneic wheezy and tight, remains on supplemental oxygen, currently on 4 L, and his pulse ox is 94% at rest, patient does desaturate on room air, down to 86% with exercise, at rest down to 88, did not use BiPAP support last night, remains on bronchodi lators, and abiotic's in the form of Zithromax, Pulmicort and Perforomist. His IV steroids have been discontinued but patient states he would like to continue with the necessary medical treatments to help him recover faster. No fever or chills, sputum culture was negative, no new labs, no new chest x-rays Objective - Vital Signs Vital signs: Vital Signs Temp 97.7 F 06/13/19 04:41 Pulse 96 06/13/19 11:38 Resp 18 06/13/19 04:41 BP 136/81 06/13/19 04:41 Pulse Ox 88 L 06/13/19 08:57 Intake & Output 06/12/19 06/13/19 06/13/19 18:59 06:59 18:59 Intake Total 780 Balance 780 Intake: Oral 780 Other: Voiding Method Toilet Toilet # Voids 2 2 3 - Exam GENERAL EXAM: Alert, very pleasant, 54-year-old white male, on 4 L of oxygen with pulse ox of 97%, comfortable in no apparent distress. HEAD: Normocephalic/atraumatic. EYES: Normal reaction of pupils, equal size. Conjunctiva pink, sclera white. NOSE: Clear with pink turbinates. THROAT: No erythema or exudates. NECK: No masses, no JVD, no thyroid enlargement, no adenopathy. CHEST: No chest wall deformity. Symmetrical expansion. LUNGS: Equal air entry with diffuse wheezes CVS: Regular rate and rhythm, normal S1 and S2, no gallops, no murmurs, no rubs ABDOMEN: Soft, nontender. No hepatosplenomegaly, normal bowel sounds, no guarding or rigidity. EXTREMITIES: No clubbing, no edema, no cyanosis, 2+ pulses and upper and lower extremities. MUSCULOSKELETAL: Muscle strength and tone normal. SPINE: No scoliosis or deformity SKIN: No rashes CENTRAL NERVOUS SYSTEM: Alert and oriented -3. No focal deficits, tone is normal in all 4 extremities. PSYCHIATRIC: Alert and oriented -3. Appropriate affect. Intact judgment and insight. - Labs CBC & Chem 7: 06/09/19 22:21 06/09/19 22:21 Labs: Microbiology - Last 24 Hours (Table) 06/11/19 04:00 Gram Stain - Final Sputum Sputum Culture - Final Assessment and Plan Plan: assessment: #1. Acute hypoxic respiratory failure related to acute exacerbation of chronic obstructive pulmonary disease, with purulent tracheobronchitis #2. Sharp chest pain with coughing, and workup is negative thus far, CTA chest was positive for pulmonary embolism, showed emphysema minimal pleural scarring in the right middle lobe #3. former smoker #4. his lipidemia #5. history of family no premature coronary artery disease plan: Continue current medical treatment, continue antibiotics, will restart Solu- Medrol at 41 g every 8 hours, patient was to continue with necessary medical treatment to help his breathing, still dyspneic and bronchospastic, still requiring supplemental oxygen, no new labs and chest x-rays, no fever or chills, sputum specimen culture was negative, continue nebulized bronchodilators, will follow I performed a history & physical examination of the patient and discussed their management with my nurse practitioner, Chelsey Baird. I reviewed the nurse practitioner's note and agree with the documented findings and plan of care. Lung sounds are positive for diffuse wheezes throughout the lung blackman. The findings and the impression was discussed with the patient. I attest to the documentation by the nurse practitioner. Time with Patient: Less than 30
[2019-06-13] MEDS: methylPREDNISolone SOD SUCCI 40 MG/ML 1 ML VIAL IV SCH ×2 (15:15→23:46)
--- NOTE | 2019-06-13 17:58 | PN ---
PROGRESS NOTE CHIEF COMPLAINT: COPD. HISTORY OF PRESENT ILLNESS: This gentleman has improved slightly. He is very depressed and agitated today because he realizes that he is in significant difficulty with his lung function. REVIEW OF SYSTEMS: He has had no headaches, chest pain, cough, hemoptysis, etc. PHYSICAL EXAMINATION: Breath sounds are still extremely poor throughout with wheezing on inspiration and expiration and there are scattered rales and rhonchi. Cardiac exam demonstrates tachycardia. IMPRESSION: 1. Exacerbation of chronic obstructive pulmonary disease. 2. Respiratory failure. 3. Anxiety and depression. PLAN: Try to reassure and continue on current program. MMODL / IJN: [id number] /
[2019-06-13] MEDS: BUDESONIDE 1 MG/2 ML NEBU INHALATION SCH (20:16)
[2019-06-13] MEDS: rOPINIRole HCL 4 MG TABLET PO SCH (22:46)
[2019-06-14] MEDS: IPRATROPIUM-ALBUTEROL 3 ML NEB INHALATION SCH ×7 (00:06→23:30)
[2019-06-14] MEDS: LEVOTHYROXINE 75 MCG TAB PO SCH (06:10)
[2019-06-14] MEDS: BUDESONIDE 1 MG/2 ML NEBU INHALATION SCH (07:17)
[2019-06-14] MEDS: FORMOTEROL FUMARATE 20 MCG/2 ML NEBU INHALATION SCH (07:17)
[2019-06-14] MEDS: PRAVASTATIN SODIUM 80 MG TAB PO SCH (07:48)
[2019-06-14] MEDS: methylPREDNISolone SOD SUCCI 40 MG/ML 1 ML VIAL IV SCH ×2 (07:48→16:05)
[2019-06-14] MEDS: AZITHROMYCIN 500 MG TAB PO SCH (07:49)
--- NOTE | 2019-06-14 15:32 | P.PN ---
Subjective Progress Note Date: 06/14/19 Principal diagnosis: Acute COPD exacerbation 54-year-old patient with past medical history of COPD, not normally oxygen dependent who presented to the hospital on 06/09/2019 with complaints of increasing shortness of breath since Monday, had not improved despite his nebulized treatments, he admitted to productive cough with yellow sputum, and sharp pain on the left side of his chest with deep breathing and coughing. Denied any hemoptysis, denied any fever or chills, denied any hemoptysis. chest x-ray completed in the emergency department showed no active cardiopulmonary d isease,labs were negative for any leukocytosis, white blood cell count was 7.3, hemoglobin was 17.5, d-dimer was 0.52, the rest of the coagulation profile, electrolytes, renal profile were within normal limits. Patient is normally on Symbicort, DuoNeb, and albuterol. EKG showed sinus tachycardia, with right atrial enlargement, but no acute ischemic changes. other past medical history includes dyslipidemia, former nicotine dependence. patient with a BiPAP support with significant amount of respiratory distress on presentation, with pressures of 14/5, and FiO2 of 35%, IV steroids, IV steroids, and empiric antibiotics, feeling slightly better, and patient is off BiPAP support, and nasal cannula On 06/13/2019 patient seen in follow-up on medical surgical floor. He states his breathing is about the same as it was yesterday, still quite dyspneic wheezy and tight, remains on supplemental oxygen, currently on 4 L, and his pulse ox is 94% at rest, patient does desaturate on room air, down to 86% with exercise, at rest down to 88, did not use BiPAP support last night, remains on bronchodi lators, and abiotic's in the form of Zithromax, Pulmicort and Perforomist. His IV steroids have been discontinued but patient states he would like to continue with the necessary medical treatments to help him recover faster. No fever or chills, sputum culture was negative, no new labs, no new chest x-rays On 06/14/2019 patient seen in follow-up the surgical floor. His Pulmicort was restarted yesterday however patient states having more shortness of breath and bronchospasm following administration of Pulmicort and for that reason will be discontinued, he is able to tolerate the Perforomist and DuoNeb's, he states he feels like IV steroids are helping, on today's exam he still dyspneic and bronchospastic, but continues to slowly improve, vital signs are stable, he is on IV Solu-Medrol at 40 mg every 8 hours, did not use BiPAP support last night, but remains on supplemental oxygen, continues on Zithromax, no other acute issues overnight, and he was sent medical treatment, increase activity as tolerated Objective - Vital Signs Vital signs: Vital Signs Temp 97.7 F 06/14/19 13:54 Pulse 106 H 06/14/19 13:54 Resp 20 06/14/19 13:54 BP 126/87 06/14/19 13:54 Pulse Ox 93 L 06/14/19 13:54 Intake & Output 06/13/19 06/14/19 06/14/19 18:59 06:59 18:59 Intake Total 240 Balance 240 Intake: Oral 240 Other: Voiding Method Toilet Toilet Toilet # Voids 3 2 1 # Bowel Movements 0 - Exam GENERAL EXAM: Alert, very pleasant, 54-year-old white male, on 4 L of oxygen with pulse ox of 97%, comfortable in no apparent distress. HEAD: Normocephalic/atraumatic. EYES: Normal reaction of pupils, equal size. Conjunctiva pink, sclera white. NOSE: Clear with pink turbinates. THROAT: No erythema or exudates. NECK: No masses, no JVD, no thyroid enlargement, no adenopathy. CHEST: No chest wall deformity. Symmetrical expansion. LUNGS: Equal air entry with diffuse wheezes CVS: Regular rate and rhythm, normal S1 and S2, no gallops, no murmurs, no rubs ABDOMEN: Soft, nontender. No hepatosplenomegaly, normal bowel sounds, no guardi ng or rigidity. EXTREMITIES: No clubbing, no edema, no cyanosis, 2+ pulses and upper and lower extremities. MUSCULOSKELETAL: Muscle strength and tone normal. SPINE: No scoliosis or deformity SKIN: No rashes CENTRAL NERVOUS SYSTEM: Alert and oriented -3. No focal deficits, tone is normal in all 4 extremities. PSYCHIATRIC: Alert and oriented -3. Appropriate affect. Intact judgment and insight. - Labs CBC & Chem 7: 06/09/19 22:21 06/09/19 22:21 Assessment and Plan Plan: assessment: #1. Acute hypoxic respiratory failure related to acute exacerbation of chronic obstructive pulmonary disease, with purulent tracheobronchitis #2. Sharp chest pain with coughing, and workup is negative thus far, CTA chest w as positive for pulmonary embolism, showed emphysema minimal pleural scarring in the right middle lobe #3. former smoker #4. his lipidemia #5. history of family no premature coronary artery disease plan: We'll discontinue the Pulmicort, continue Perforomist, continue DuoNeb continue same dose IV steroids, Zithromax, patient states he is unable to tolerate Pulmicort he states it causes more bronchospasm. He is on Symbicort at home, and he tolerates that well. We'll continue same medical treatment, will reevaluate in another 24 hours, still dyspneic on bronchospastic, improving, did not require BiPAP support last night. I performed a history & physical examination of the patient and discussed their management with my nurse practitioner, Chelsey Baird. I reviewed the nurse practitioner's note and agree with the documented findings and plan of care. Lung sounds are positive for diffuse wheezes throughout the lung blackman. The findings and the impression was discussed with the patient. I attest to the documentation by the nurse practitioner. Time with Patient: Less than 30
--- NOTE | 2019-06-14 15:38 | PN ---
PROGRESS NOTE DATE OF SERVICE: 06/14/2019 CHIEF COMPLAINT: Exacerbation of COPD and depression. HISTORY OF PRESENT ILLNESS: This gentleman is doing a little bit better. Breathing seems to be improved. He was put back on IV steroids again yesterday and he thinks it helps. PHYSICAL EXAMINATION: His breath sounds are better. He still has extensive rales, rhonchi and wheezing with poor breath sounds bilaterally, but he is moving more than yesterday. The cardiac exam is normal. Abdomen is soft, nontender. IMPRESSION: Exacerbation of chronic obstructive pulmonary disease. PLAN: Continue on current program until he is cleared. MMODL / IJN: [id number] /
[2019-06-14] MEDS: rOPINIRole HCL 4 MG TABLET PO SCH (22:19)
[2019-06-15] MEDS: methylPREDNISolone SOD SUCCI 40 MG/ML 1 ML VIAL IV SCH ×3 (00:13→15:35)
[2019-06-15 01:31] VITALS: RESP 18
[2019-06-15] MEDS: IPRATROPIUM-ALBUTEROL 3 ML NEB INHALATION SCH ×6 (03:08→23:44)
[2019-06-15] MEDS: LEVOTHYROXINE 75 MCG TAB PO SCH (05:41)
[2019-06-15] MEDS: PRAVASTATIN SODIUM 80 MG TAB PO SCH (08:41)
[2019-06-15] MEDS: AZITHROMYCIN 500 MG TAB PO SCH (08:56)
--- NOTE | 2019-06-15 13:33 | P.PN ---
Subjective Progress Note Date: 06/15/19 On 06/15/2019 the patient is slowly improving. He is gradually becoming less short of breath. However, he remains oxygen dependent and history requiring oxygen at 4 L per minute nasal cannula especially with activity when he desaturates. He still having some coughing spells. He is currently on IV Solu- Medrol 40 mg every 8 hours. He is also on DuoNeb nebulized treatments [id number]. He was unable to tolerate the Perforomist and this was discontinued. My plan is to ultimately discharge this patient home within the next 24 hours on a combination of Spiriva and Symbicort in addition to DuoNeb nebulized treatments around the clock. We'll arrange for him home O2. We will also arrange for him a prednisone burst taper. No fever. No chills. Was Objective - Vital Signs Vital signs: Vital Signs Temp 97.5 F L 06/15/19 05:55 Pulse 100 06/15/19 12:03 Resp 18 06/15/19 05:55 BP 114/79 06/15/19 05:55 Pulse Ox 94 L 06/15/19 05:55 Intake & Output 06/14/19 06/15/19 06/15/19 18:59 06:59 18:59 Intake Total 540 400 Balance 540 400 Intake: Oral 540 400 Other: Voiding Method Toilet Toilet # Voids 4 2 - Exam The patient appeared well nourished and normally developed. Vital signs as documented. Head exam is unremarkable. No scleral icterus or corneal arcus noted. Neck is without jugular venous distension, thyromegaly, or carotid bruits. Carotid upstrokes are brisk bilaterally. Lungs diminished breath sounds bilaterally along with scattered expiratory wheezes heard throughout the lung blackman and prolongation of the expiratory phase of breathing. Cardiac exam reveals the PMI to be normally sized and situated. Rhythm is regular. First and second heart sounds normal. No murmurs, rubs or gallops. Abdominal exam reveals normal bowel sounds, no masses, no organomegaly and no aortic enlargement. Extremities are nonedematous and both femoral and pedal pulses are normal.skinExamination of the skin revealed no evidence of significant rashes, suspicious appearing nevi or other concerning lesions. - Labs CBC & Chem 7: 06/09/19 22:21 06/09/19 22:21 Assessment and Plan Plan: #1 Acute hypoxic respiratory failure related to acute exacerbation of chronic obstructive pulmonary disease, with purulent tracheobronchitis #2 Sharp chest pain with coughing, and workup is negative thus far, CTA chest was negative for pulmonary embolism, showed emphysema minimal pleural scarring in the right middle lobe #3 former smoker #4 Hyperlipidemia #5. history of family no premature coronary artery disease plan In his same treatment. Add Spiriva. Continue Symbicort. Arrange for home discharge within next 24 hours and a prednisone burst taper in addition to a DuoNeb nebulized treatments around the clock and oxygen that needs to be ranging between 3 and 4 L. He will purchase a pulse oximeter at home
--- NOTE | 2019-06-15 20:26 | PN ---
PROGRESS NOTE CHIEF COMPLAINT: COPD. HISTORY OF PRESENT ILLNESS: This gentleman is a little bit worse today. He states that there was some medication or inhalant drugs that he was given that has made him become more bronchospastic. He has had no fever and chills, hemoptysis, etc. PHYSICAL EXAMINATION: He still has very poor breath sounds with copious rales and rhonchi and prolonged inspiratory and expiratory phase. Cardiac exam demonstrates tachycardia. IMPRESSION: Exacerbation of chronic obstructive pulmonary disease. PLAN: Continue on current medication program until he is more broncho dilated. MMODL / IJN: [id number] /
[2019-06-15] MEDS: rOPINIRole HCL 4 MG TABLET PO SCH (20:31)
[2019-06-16] MEDS: methylPREDNISolone SOD SUCCI 40 MG/ML 1 ML VIAL IV SCH ×2 (00:13→08:52)
[2019-06-16] MEDS: IPRATROPIUM-ALBUTEROL 3 ML NEB INHALATION SCH ×3 (03:18→10:54)
[2019-06-16] MEDS: LEVOTHYROXINE 75 MCG TAB PO SCH (05:52)
[2019-06-16 07:19] VITALS: BP 118/78; TEMP 97.4
[2019-06-16] MEDS: AZITHROMYCIN 500 MG TAB PO SCH (08:52)
[2019-06-16] MEDS: PRAVASTATIN SODIUM 80 MG TAB PO SCH (08:52)
[2019-06-16 11:10] VITALS: PULSE 123
--- NOTE | 2019-06-16 13:02 | P.PN ---
Subjective Progress Note Date: 06/16/19 on 06/16/2019 the patient is being seen for a follow-up. Is feeling better. Less short of breath. He is going to go home today with oxygen therapy at 2 L per minute nasal cannula. Cough and congestion wheezing is improved. The patient will continue treatment with a prednisone burst taper an outpatient basis. He was discharged almost on a combination of Spiriva and Symbicort. He has a nebulizer at home. He'll be using DuoNeb nebulized treatments around the clock. Smoking cessation counseling was done. No chest pain. No angina. No palpitation. No other new complaints otherwise for now. Objective - Vital Signs Vital signs: Vital Signs Temp 97.4 F L 06/16/19 04:55 Pulse 123 H 06/16/19 11:09 Resp 18 06/16/19 04:55 BP 118/78 06/16/19 04:55 Pulse Ox 94 L 06/16/19 10:09 Intake & Output 06/15/19 06/16/19 06/16/19 18:59 06:59 18:59 Intake Total 1100 400 Balance 1100 400 Intake: Oral 1100 400 Other: Voiding Method Toilet Toilet # Voids 1 3 - Exam The patient appeared well nourished and normally developed. Vital signs as documented. Head exam is unremarkable. No scleral icterus or corneal arcus noted. Neck is without jugular venous distension, thyromegaly, or carotid bruits. Carotid upstrokes are brisk bilaterally. Lungs diminished breath sounds bilaterally along with scattered expiratory wheezes heard throughout the lung blackman and prolongation of the expiratory phase of breathing. Cardiac exam reveals the PMI to be normally sized and situated. Rhythm is regular. First and second heart sounds normal. No murmurs, rubs or gallops. Abdominal exam reveals normal bowel sounds, no masses, no organomegaly and no aortic enlargement. Extremities are nonedematous and both femoral and pedal pulses are normal.skinExamination of the skin revealed no evidence of significant rashes, suspicious appearing nevi or other concerning lesions. - Labs CBC & Chem 7: 06/09/19 22:21 06/09/19 22:21 Assessment and Plan Plan: #1 Acute hypoxic respiratory failure related to acute exacerbation of chronic obstructive pulmonary disease, with purulent tracheobronchitis #2 Sharp chest pain with coughing, and workup is negative thus far, CTA chest was negative for pulmonary embolism, showed emphysema minimal pleural scarring in the right middle lobe #3 former smoker #4 Hyperlipidemia #5. history of family no premature coronary artery disease plan improved clinically. Home today as planned on oxygen and a prednisone burst taper along with Symbicort and Spiriva and DuoNeb nebulized treatments around the clock. Outpatient follow-up in the office in a week or 2. Smoking cessation counseling was done.
--- NOTE | 2019-06-16 18:06 | DS ---
DISCHARGE SUMMARY CHIEF COMPLAINT: Shortness of breath. HISTORY OF PRESENT ILLNESS AND PHYSICAL EXAM: Details of this man's history and physical can be found in the initial workup. LABORATORY STUDIES: While he was in the hospital, he had laboratory studies, details of which can be found in the laboratory section of his chart. COURSE IN HOSPITAL: After admission, he was placed on bedrest, started on intravenous fluids and IV and inhaled steroids along with updrafts. He remained very tight and dyspneic for several days until he started to open up. He was taken off steroids after 72 hours, but became more bronchospastic. He was placed back on IV Solu-Medrol and he continued to improve. He was doing well enough to go home on June 16 and he will be seen in the office in several days. FINAL DIAGNOSIS: Exacerbation of chronic obstructive pulmonary disease. OPERATIONS: None. CONSULTATIONS: Pulmonology. He is improved. MMODL / MICAELAN: [id number] /
[2019-06-17] MEDS ORDERED: methylPREDNISolone 4 MG TAB TAPER PO SCH (09:00)
== END 2019-06-16 13:19 | disposition home or self-care (01) | DRG 190 ==
LOC: EC 22:12 → 6NMEDSUR 06-10 00:41
PROVIDERS: ADMIT Family Medicine; ATTEND Family Medicine
PROC: 5A09557 Assistance with Respiratory Ventilation, Greater than 96 Consecutive Hours, Continuous Positive Airway Pressure (ICD-10-PCS; principal; 2019-06-09)
DX: J43.9 Emphysema, unspecified (principal); J96.01 Acute respiratory failure with hypoxia; I27.20 Pulmonary hypertension, unspecified; F41.9 Anxiety disorder, unspecified; F17.200 Nicotine dependence, unspecified, uncomplicated; E78.5 Hyperlipidemia, unspecified; D69.6 Thrombocytopenia, unspecified; F32.9 Major depressive disorder, single episode, unspecified; J40 Bronchitis, not specified as acute or chronic; Z79.51 Long term (current) use of inhaled steroids; Z79.890 Hormone replacement therapy; Z82.49 Family history of ischemic heart disease and other diseases of the circulatory system; Z79.899 Other long term (current) drug therapy; Z82.5 Family history of asthma and other chronic lower respiratory diseases; Z99.81 Dependence on supplemental oxygen
CPT/HCPCS: 36415; 71045; 71046; 71275; 80053; 80061; 82803; 83605; 83735; 83880; 84484; 85025; 85379; 85610; 85730; 87070; 87205; 87502; 93005; 93306; 94640; 94660; 94760; 96365; 96366; 96368; 96375; 99291

== ENCOUNTER → 2024-03-14 | Outpatient (CLI) | payer OTHER ==
--- NOTE | 2024-03-14 18:42 | CTL ---
EXAMINATION TYPE: CT Low Dose Lung DATE OF EXAM: 03/14/2024 4:40 PM CLINICAL INDICATION: Male, 59 years old with history of I27.0 PRIMARY PULMONARY HYPERTENSION; history of smoker , history of tobacco use. COMPARISON: 06/09/2019. TECHNIQUE: Multiple axial non-contrast scans were obtained from approximately the lung apices through the upper abdomen. Coronal and sagittal reformatted images were obtained. Low dose technique was uti lized. CT DLP: 94.2 mGycm, Automated exposure control for dose reduction was used. CT Contrast: Contrast used: None Oral contrast used: None FINDINGS: ======== Lack of intravenous contrast and low dose technique limits the evaluation of the vascular and soft ti ssue structures. LUNGS: No evidence of pulmonary fibrosis. No evidence of focal consolidation, pneumothorax or pleural effusion. Centrilobular emphysema changes. Nodules: RUL: None. RML: Intrafissural lymph node in the minor fissure series 9 image 19. RLL: None. EVONNE: None. LLL: None. AIRWAY: Patent and unremarkable. HEART: Size within normal limits. MEDIASTINUM: No gross evidence of adenopathy. VASCULATURE: No aortic aneurysm. MUSCULOSKELETAL: No acute osseous abnormalities SOFT TISSUES/LYMPH NODES: Unremarkable. LOWER NECK: No significant findings. UPPER ABDOMEN: No significant findings. IMPRESSION: 1. No clinically significant pulmonary nodules. 2. Mild emphysema. CT LUNG RAD AND CT CHEST RECOMMENDATION: Lung-Rad 2 Benign Appearance or Behavior: Continue annual sc reening with LDCT in 12 months. S Modifier (other clinically significant findings): None Recommend smoking cessation (if current smoker), or continuation of smoking cessation (if prior smoke r). Annual screening for lung cancer with low-dose computed tomography is recommended in adults ages 55 to 77 years who have a 30 pack-year smoking history and currently smoke or have quit within the pa st 15 years. Screening should be discontinued once a person has not smoked for 15 years or develops a health problem that substantially limits life expectancy or the ability or willingness to have curat hedy lung surgery. Lung rads 2021 [email or web address] [facility], , 03/14/2024 6:40 PM
--- NOTE | 2024-03-15 09:52 | CA ---
Transthoracic Echo Report Name: Tre Conte Age: 59 Gender: M : 1965 Exam Date: 03/14/2024 15:29 Exam Location: [place] [facility] Ht (in): 71 Wt (lb): 200 Ordering Physician: Will Fortune MD Attending/Referring Phys: Will Fortune MD Assistant Professor Of Music Vandana Young, [facility] Procedure CPT: Indications: I27.0 PRIMARY PULMONARY HYPERTENSION Cardiac Hx: Technical Quality: Very technically difficult study Contrast 1: Definity Total Dose (mL): 2 Contrast 2: Total Dose (mL): MEASUREMENTS (Male / Female) Normal Values 2D ECHO LV Diastolic Diameter PLAX 4.3 cm 4.2 - 5.9 / 3.9 - 5.3 cm LV Systolic Diameter PLAX 3.2 cm IVS Diastolic Thickness 0.9 cm 0.6 - 1.0 / 0.6 - 0.9 cm LVPW Diastolic Thickness 0.8 cm 0.6 - 1.0 / 0.6 - 0.9 cm LV Relative Wall Thickness 0.4 RV Internal Dim ED PLAX 2.7 cm LA Volume 29.2 cm??? 18 - 58 / 22 - 52 cm??? LA Volume Index 13.6 cm???/m??? 16 - 28 cm???/m??? M-MODE Aortic Root Diameter MM 3.0 cm LA Systolic Diameter MM 4.1 cm LA Ao Ratio MM 1.4 DOPPLER AV Peak Velocity 65.3 cm/s AV Peak Gradient 1.7 mmHg AV Mean Velocity 40.1 cm/s AV Mean Gradient 0.8 mmHg AV Velocity Time Integral 10.8 cm LVOT Peak Velocity 60.2 cm/s LVOT Peak Gradient 1.4 mmHg LVOT Velocity Time Integral 11.2 cm MV Area PHT 3.2 cm??? Mitral E Point Velocity 42.7 cm/s Mitral A Point Velocity 70.4 cm/s Mitral E to A Ratio 0.6 MV Deceleration Time 240.4 ms MV E' Velocity 7.8 cm/s Mitral E to MV E' Ratio 5.5 FINDINGS Left Ventricle Left ventricle not well visualized. Left ventricular cavity size normal. Left ventricular hypertrophy. No obvious regional wall motion abnormalities. Left ventricular ejection fraction is estimated at 50-55 %. Right Ventricle Right ventricle not well visualized. Normal right ventricular size and function. Right Atrium Normal right atrial size. Left Atrium Normal left atrial size. Mitral Valve Mitral valve not well visualized. No mitral stenosis. No mitral regurgitation. Aortic Valve Aortic valve not well visualized. No aortic valve stenosis or regurgitation. Tricuspid Valve Structurally normal tricuspid valve. Pulmonic Valve Pulmonic valve not well visualized. Pericardium No pericardial effusion. Aorta Normal size aortic root and proximal ascending aorta. CONCLUSIONS Diagnosis: Primary pulmonary hypertension Technically difficult study with suboptimal acoustic windows despite the use of contrast echo Preserved LV size and systolic function Right ventricle appears enlarged only and some off axis views but in the standard views RV does not appear enlarged No clear-cut TR observed to measure RVSP Would recommend advanced imaging of cardiac structures to evaluate right ventricle Previewed by: Dr. Allan Adrian MD (Electronically Signed) Final Date: 15 March 2024 09:51
== END | disposition home or self-care (01) ==
LOC: RADECHMAIN 15:20
PROVIDERS: ATTEND Internal Medicine
DX: I27.0 Primary pulmonary hypertension
CPT/HCPCS: 71271; 93306